=== PATIENT | male | born 1995 | race African-American/Black ===

== ENCOUNTER 2020-02-20 11:28 | Emergency (ER) | payer BC ==
[~2020-02-20] VITALS: Ht 170.2 cm; Wt 70.3 kg
--- NOTE | 2020-02-20 11:28 | NUR ---
ED Nurse Note: Pt was brought in by [facility] accompanied by NICOLASA d/t behavioral complaint. Per PD and EMS pt was found harrassing people on a hair salon. Pt arrived to ED with kempt clothing; uncontrollably shouting; appears restless; uncooperative to care. Per PD pt might took some drugs; pt unable to answer coherently to questions as of now. Pt's VSS, unable to obtain BP as of now. Safety measures met, will continue to monitor pt.
[2020-02-20 11:30] VITALS: BP 110/72
[2020-02-20] MEDS ORDERED: DiphenhydrAMINE 50mg/ml Inj IM ONE (11:30)
[2020-02-20] MEDS ORDERED: Haloperidol 5mg/ml Inj IM ONE ×2 (11:30→12:30)
[2020-02-20] MEDS ORDERED: LORazepam Inj 2mg/ml 1ml IM ONE (11:30)
[2020-02-20] MEDS ORDERED: LORazepam Inj 2mg/ml 1ml ONE ×2 (11:31→19:44)
[2020-02-20] MEDS ORDERED: DiphenhydrAMINE 50mg/ml Inj ONE (11:31)
[2020-02-20] MEDS ORDERED: Haloperidol 5mg/ml Inj ONE (11:31)
--- NOTE | 2020-02-20 12:16 | Emergency Room Report ---
History of Present Illness General Chief Complaint: Behavioral Complaint Source: EMS (Misha Christie MD) Present Illness HPI The patient is brought by EMS. They were called to a hair salon where the patient was harassing people. [employer] were at the scene. They were unable to obtain a blood pressure measurement because the patient is noncompliant. They state he is rambling incoherently. The patient is unable to give history at this time and not responding to questions. (Misha Christie MD) Allergies: Coded Allergies: UNABLE TO ASSESS (Unverified , 02/20/20) COVID-19 Screening Contact w/high risk pt: No Experienced COVID-19 symptoms?: No COVID-19 Testing performed ZIPPER SLIDE ATTACHER: No (Misha Christie MD) Patient History Limited by: medical condition Past Medical History: see triage record Social History: Reports: smoking, drug use Social History Narrative brought by [facility] Reviewed Nursing Documentation: PMH: Agreed; PSxH: Agreed (Misha Christie MD) Nursing Documentation-PMH Past Medical History: Deferred (Misha Christie MD) Review of Systems All Other Systems: limited (Misha Christie MD) Physical Exam Vital Signs Date Time Temp Pulse Resp B/P (MAP) Pulse Ox O2 Delivery O2 Flow Rate FiO2 02/20/20 11:21 97.9 125 22 98 Room Air Sp02 EP Interpretation: reviewed, normal General Appearance: non-toxic, other - Screening and gesticulating not responding to questions or attempts to calm Head: normocephalic, atraumatic Eyes: bilateral eye normal inspection, bilateral eye PERRL, bilateral eye EOMI ENT: moist mucus membranes Neck: full range of motion Respiratory: normal inspection Cardiovascular #1: tachycardia Gastrointestinal: scaphoid Musculoskeletal: normal range of motion, moves extm spontaneously Neurologic: alert, motor strength/tone normal Psychiatric: other Skin: no rash, warm/dry, other - Tattoos (Misha Christie MD) Medical Decision Making Medical: Substance Abuse Behavioral: Bipolar Disorder Reaction to Intervention: No change Restraint Reassesment I, Misha Christie MD, have personally evaluated this patient. Laboratory tests have been ordered and will be addressed accordingly. The patient is deemed to present a danger to themselves and/or others. This is based on the exam, history provided by EMS and observed and reported behavior. Attempts for non-invasive measures have been considered and/or attempted, however, have been futile. It is in the best interest of the nursing staff, the patient, and others involved in this patient's care that behavioral restraints be applied. Patient evaluation reveals the following: Patient rambling and delusional and not responding to external stimuli, occasionally he hits his own head (Misha Christie MD) Diagnostic Impression: Primary Impression: Psychosis Qualified Codes: F25.0 - Schizoaffective disorder, bipolar type Additional Impressions: Bipolar disorder Qualified Codes: F31.2 - Bipolar disorder, current episode manic severe with psychotic features COVID-19 ruled out by laboratory testing ER Course Patient presents with agitation and not responding to external stimuli. Differential includes agitated delirium, electrolyte imbalance, exacerbation of underlying psychiatric illness amongst others. As patient is demonstrating self-destructive behavior restraints are indicated. In addition sedation has been ordered. Once the patient is sedated the patient will be evaluated with EKG and labs. Also IV hydration has been ordered. After initial 5 mg of Haldol, 2 mg of Ativan and Benadryl patient is minimally more calm. 1 of his hands is free of and he continues to intermittently hit his head. At this time he states he did smoke methamphetamine. In addition he states he was evaluated 2 days ago at [facility]. Repeat Haldol ordered. Restraints continued. 1215 EKG was sinus tachycardia. Labs with minimally elevated CK, normal renal function and CBC. Tox screen negative. Patient more coherent. Now states that he has bipolar disorder. When asked what medicines have helped in the past he is unable to state. A list was given to the patient and he declined to answer. When we confronted about his admitted to use of methamphetamine in the face of a negative tox screen he states "no". He did denies any pain at this time. He denies fever, cough, nausea, vomiting, diarrhea, dysuria. At times he still lapses into repetitive echolalia and irrational thought. Restraints are continued at this time however based on laboratory values the patient is medically cleared for psychiatric hospitalization. Repeat evaluations indicated. Signed out to Dr. Argueta. Laboratory Tests Test 02/20/20 12:42 02/20/20 12:45 02/20/20 12:50 Urine Opiates Screen Negative (NEGATIVE) Urine Barbiturates Screen Negative (NEGATIVE) Phencyclidine (PCP) Screen Negative (NEGATIVE) Urine Amphetamines Screen Negative (NEGATIVE) Urine Benzodiazepines Screen Negative (NEGATIVE) Urine Cocaine Screen Negative (NEGATIVE) Urine Marijuana (THC) Screen Negative (NEGATIVE) White Blood Count 10.2 K/UL (4.8-10.8) Red Blood Count 4.70 M/UL (4.70-6.10) Hemoglobin 13.7 G/DL (14.2-18.0) L Hematocrit 40.5 % (42.0-52.0) L Mean Corpuscular Volume 86 FL (80-99) Mean Corpuscular Hemoglobin 29.1 PG (27.0-31.0) Mean Corpuscular Hemoglobin Concent 33.8 G/DL (32.0-36.0) Red Cell Distribution Width 11.9 % (11.6-14.8) Platelet Count 226 K/UL (150-450) Mean Platelet Volume 8.4 FL (6.5-10.1) Neutrophils (%) (Auto) 79.5 % (45.0-75.0) H Lymphocytes (%) (Auto) 13.2 % (20.0-45.0) L Monocytes (%) (Auto) 5.9 % (1.0-10.0) Eosinophils (%) (Auto) 0.9 % (0.0-3.0) Basophils (%) (Auto) 0.4 % (0.0-2.0) Sodium Level 140 MMOL/L (136-145) Potassium Level 3.7 MMOL/L (3.5-5.1) Chloride Level 105 MMOL/L (98-107) Carbon Dioxide Level 26 MMOL/L (21-32) Anion Gap 9 mmol/L (5-15) Blood Urea Nitrogen 11 mg/dL (7-18) Creatinine 1.1 MG/DL (0.55-1.30) Estimated Glomerular Filtration Rate > 60 mL/min (>60) Glucose Level 85 MG/DL (74-106) Calcium Level 9.1 MG/DL (8.5-10.1) Total Bilirubin 0.3 MG/DL (0.2-1.0) Aspartate Amino Transferase (AST) 23 U/L (15-37) Alanine Aminotransferase (ALT) 22 U/L (12-78) Alkaline Phosphatase 63 U/L (46-116) Total Creatine Kinase 495 U/L (26-308) H Total Protein 6.7 G/DL (6.4-8.2) Albumin 4.1 G/DL (3.4-5.0) Globulin 2.6 g/dL Albumin/Globulin Ratio 1.6 (1.0-2.7) Salicylates Level 0.2 ug/mL (2.8-20) L Acetaminophen Level < 2 MCG/ML (10-30) L Serum Alcohol < 3 mg/dL Urine Color Yellow Urine Appearance Clear Urine pH 6 (4.5-8.0) Urine Specific [place] 1.020 (1.005-1.035) Urine Protein Negative (NEGATIVE) Urine Glucose (UA) Negative (NEGATIVE) Urine Ketones 1+ (NEGATIVE) H Urine Blood Negative (NEGATIVE) Urine Nitrite Negative (NEGATIVE) Urine Bilirubin Negative (NEGATIVE) Urine Urobilinogen Normal MG/DL (0.0-1.0) Urine Leukocyte Esterase 1+ (NEGATIVE) H Urine RBC 0 /HPF (0 - 0) Urine WBC 0-2 /HPF (0 - 0) Urine Squamous Epithelial Cells Occasional /LPF Urine Bacteria Occasional /HPF (NONE) Urine Mucus Few /LPF (NONE/OCC) H (Misha Christie MD) ER Course The patient continued with significant psychosis during his ED course under my care. He did get agitated and his behavior did escalate, so he was given oral Geodon and IV Ativan. The patient is in an acute psychotic episode and is unable to manage his medications or daily life. He is awaiting psychiatric placement for severe acute psychotic episode. The patient was accepted at [facility]. Laboratory Tests Test 02/20/20 12:42 02/20/20 12:45 02/20/20 12:50 Urine Opiates Screen Negative (NEGATIVE) Urine Barbiturates Screen Negative (NEGATIVE) Phencyclidine (PCP) Screen Negative (NEGATIVE) Urine Amphetamines Screen Negative (NEGATIVE) Urine Benzodiazepines Screen Negative (NEGATIVE) Urine Cocaine Screen Negative (NEGATIVE) Urine Marijuana (THC) Screen Negative (NEGATIVE) White Blood Count 10.2 K/UL (4.8-10.8) Red Blood Count 4.70 M/UL (4.70-6.10) Hemoglobin 13.7 G/DL (14.2-18.0) L Hematocrit 40.5 % (42.0-52.0) L Mean Corpuscular Volume 86 FL (80-99) Mean Corpuscular Hemoglobin 29.1 PG (27.0-31.0) Mean Corpuscular Hemoglobin Concent 33.8 G/DL (32.0-36.0) Red Cell Distribution Width 11.9 % (11.6-14.8) Platelet Count 226 K/UL (150-450) Mean Platelet Volume 8.4 FL (6.5-10.1) Neutrophils (%) (Auto) 79.5 % (45.0-75.0) H Lymphocytes (%) (Auto) 13.2 % (20.0-45.0) L Monocytes (%) (Auto) 5.9 % (1.0-10.0) Eosinophils (%) (Auto) 0.9 % (0.0-3.0) Basophils (%) (Auto) 0.4 % (0.0-2.0) Sodium Level 140 MMOL/L (136-145) Potassium Level 3.7 MMOL/L (3.5-5.1) Chloride Level 105 MMOL/L (98-107) Carbon Dioxide Level 26 MMOL/L (21-32) Anion Gap 9 mmol/L (5-15) Blood Urea Nitrogen 11 mg/dL (7-18) Creatinine 1.1 MG/DL (0.55-1.30) Estimated Glomerular Filtration Rate > 60 mL/min (>60) Glucose Level 85 MG/DL (74-106) Calcium Level 9.1 MG/DL (8.5-10.1) Total Bilirubin 0.3 MG/DL (0.2-1.0) Aspartate Amino Transferase (AST) 23 U/L (15-37) Alanine Aminotransferase (ALT) 22 U/L (12-78) Alkaline Phosphatase 63 U/L (46-116) Total Creatine Kinase 495 U/L (26-308) H Total Protein 6.7 G/DL (6.4-8.2) Albumin 4.1 G/DL (3.4-5.0) Globulin 2.6 g/dL Albumin/Globulin Ratio 1.6 (1.0-2.7) Salicylates Level 0.2 ug/mL (2.8-20) L Acetaminophen Level < 2 MCG/ML (10-30) L Serum Alcohol < 3 mg/dL Urine Color Yellow Urine Appearance Clear Urine pH 6 (4.5-8.0) Urine Specific [place] 1.020 (1.005-1.035) Urine Protein Negative (NEGATIVE) Urine Glucose (UA) Negative (NEGATIVE) Urine Ketones 1+ (NEGATIVE) H Urine Blood Negative (NEGATIVE) Urine Nitrite Negative (NEGATIVE) Urine Bilirubin Negative (NEGATIVE) Urine Urobilinogen Normal MG/DL (0.0-1.0) Urine Leukocyte Esterase 1+ (NEGATIVE) H Urine RBC 0 /HPF (0 - 0) Urine WBC 0-2 /HPF (0 - 0) Urine Squamous Epithelial Cells Occasional /LPF Urine Bacteria Occasional /HPF (NONE) Urine Mucus Few /LPF (NONE/OCC) H Microbiology Date/Time Source Procedure Growth Status 02/20/20 19:01 Nasopharynx SARS-CoV-2 RdRp Gene Assay - Final Complete (Haylie Vu Macho CAGE) EKG Diagnostic Results Rate: tachycardiac Rhythm: NSR ST Segments: no acute changes (Misha Christie MD) Rate: normal Rhythm: NSR ST Segments: no acute changes (Haylie Vu Macho ) Rhythm Strip Diag. Results EP Interpretation: yes Rhythm: no PVC's, no ectopy, other - ST (Misha Christie MD) EP Interpretation: yes Rate: 90's Rhythm: NSR, no PVC's, no ectopy (Haylie Vu Macho ) Last Vital Signs Date Time Temp Pulse Resp B/P (MAP) Pulse Ox O2 Delivery O2 Flow Rate FiO2 02/20/20 19:47 97 18 118/89 99 02/20/20 19:03 Room Air 02/20/20 15:58 97.9 Status: improved (Misha Christie MD) Disposition: PSYCH HOSP/UNIT - [place] Condition: Stable Misha Christie MD Feb 20, 2020 12:15 Haylie Vu Macho CAGE Feb 20, 2020 21:18
--- NOTE | 2020-02-20 13:00 | NUR ---
ED Nurse Note: Pt appears to be calmer now but still disoriented and still shouts inconherently from time to time.
[2020-02-20 13:08] LABS: APPEARANCE,URINE CLEAR; BILIRUBIN, URINE NEGATIVE (NEGATIVE); GLUCOSE, URINE (UA) NEGATIVE (NEGATIVE); KETONES,URINE 1+ (NEGATIVE); LEUKOCYTE ESTERASE ,URINE 1+ (NEGATIVE); NITRITE,URINE NEGATIVE (NEGATIVE); PH,URINE 6 (4.5-8.0); PROTEIN,URINE NEGATIVE (NEGATIVE); UROBILINOGEN,URINE NORMAL MG/DL (0.0-1.0)
[2020-02-20 13:09] LABS: BASOPHILS % (AUTO) 0.4 % (0.0-2.0); EOSINOPHILS % (AUTO) 0.9 % (0.0-3.0); HEMATOCRIT 40.5 % (42.0-52.0); HEMOGLOBIN 13.7 G/DL (14.2-18.0); LYMPHOCYTES % (AUTO) 13.2 % (20.0-45.0); MEAN CORPUSCULAR VOLUME 86 FL (80-99); MONOCYTES % (AUTO) 5.9 % (1.0-10.0); NEUTROPHILS % (AUTO) 79.5 % (45.0-75.0); PLATELET COUNT 226 K/UL (150-450); RED CELL DISTRIBUTION WIDTH 11.9 % (11.6-14.8); WHITE BLOOD COUNT 10.2 K/UL (4.8-10.8)
[2020-02-20 13:21] LABS: COLOR,URINE YELLOW
[2020-02-20 13:21] LABS: ANION GAP 9 mmol/L (5-15); BLOOD UREA NITROGEN 11 mg/dL (7-18); CALCIUM 9.1 MG/DL (8.5-10.1); CARBON DIOXIDE 26 MMOL/L (21-32); CHLORIDE 105 MMOL/L (98-107); CREATININE 1.1 MG/DL (0.55-1.30); POTASSIUM 3.7 MMOL/L (3.5-5.1); SODIUM 140 MMOL/L (136-145)
[2020-02-20 13:27] LABS: ALANINE AMINOTRANSFERASE 22 U/L (12-78); ALBUMIN 4.1 G/DL (3.4-5.0); ALBUMIN/GLOBULIN RATIO 1.6 (1.0-2.7); ALKALINE PHOSPHATASE 63 U/L (46-116); ASPARTATE AMINO TRANSFERASE 23 U/L (15-37); BILIRUBIN,TOTAL 0.3 MG/DL (0.2-1.0); CREATINE KINASE 495 U/L (26-308)
--- NOTE | 2020-02-20 15:20 | NUR ---
ED Nurse Note: ERMD at bedside.
[2020-02-20 15:58] VITALS: BP 111/72
--- NOTE | 2020-02-20 16:30 | NUR ---
ED Nurse Note: sandwich offered but pt refused.
--- NOTE | 2020-02-20 18:23 | NUR ---
ED Nurse Note: pt still on bed, awake and alert; safety measures in placed. Pt noted to be continuously shouts incoherently with echolalia.
--- NOTE | 2020-02-20 19:05 | NUR ---
ED Nurse Note: Report given to MAKEDA Preston
--- NOTE | 2020-02-20 19:21 | NUR ---
ED Nurse Note: Spoke to Ángel at [facility], gave update on patient, states they will follow up again in an hour.
[2020-02-20] MEDS ORDERED: Ziprasidone 20mg cap ORAL ONE ×2 (19:44→19:45)
[2020-02-20] MEDS ORDERED: LORazepam Inj 2mg/ml 1ml IV ONE (19:45)
--- NOTE | 2020-02-20 20:23 | NUR ---
ED Nurse Note: Two point restraints discontinued by ERMD. Patient calm and cooperative. No acute distress noted. Patient able to move extremities independently. provided with urinal.
--- NOTE | 2020-02-20 21:52 | NUR ---
ED Nurse Note: PET community engagement representative from [facility] at bedside.
--- NOTE | 2020-02-20 22:53 | NUR ---
ED Nurse Note: Called to give report to [facility], was informed to call back in 30 minutes, [facility] aware that ETA for transport is 2300.
--- NOTE | 2020-02-20 22:55 | NUR ---
ED Nurse Note: Patient calm and sleeping in bed, no acute distress noted.
[2020-02-20 23:20] VITALS: BP 122/75
--- NOTE | 2020-02-20 23:20 | NUR ---
ER DISCHARGE NOTE: Patient is cleared to be transferred to [facility] per ERMD. Patient transported by [facility]. All belongings given to [facility] Personnel. Report given to Estiven at [facility]. Patient alert, awake, and cooperative upon departure. Patient VSS on room air. IV and ID band removed intact with no complications. No acute distress noted during departure.
--- NOTE | 2020-02-20 23:48 | NUR ---
ED Nurse Note: Report given to Estiven at [facility].
--- NOTE | 2020-02-28 16:07 | Cardiology Report ---
APPROVED REPORT EKG Measurement Heart [id number] <Conclusion> Normal sinus rhythm Normal ECG
--- NOTE | 2020-02-28 16:10 | Cardiology Report ---
APPROVED REPORT EKG Measurement Heart [id number] <Conclusion> Sinus tachycardia Otherwise normal ECG
== END 2020-02-20 23:20 ==
LOC: EDBD 11:28 → EMR 13:45
DX: F25.0 Schizoaffective disorder, bipolar type (principal); F31.2 Bipolar disorder, current episode manic severe with psychotic features; F17.200 Nicotine dependence, unspecified, uncomplicated; R00.0 Tachycardia, unspecified
CPT/HCPCS: 36415; 80053; 80307; 81003; 82550; 85025; 93005; 96361; 96372; 96374; 99284; G0480; J1200; J1630; J7030; U0002